=== PATIENT | male | born 1960 | race Two or more races ===

== ENCOUNTER 2024-08-02 05:09 | Day surgery (SDC) | payer OTHER ==
[~2024-08-02 05:09] MED LIST: CAPOTEN25 MG; COZAAR25 MG; GLIPIZIDE10 MG; GLUMETZA500 MG; PRILOSEC40 MG; SIMVASTATIN10 MG
[2024-08-02] MEDS ORDERED: HEMOSTATIC MATRIX 1 KIT KIT TOP ONE (06:44)
[2024-08-02] MEDS ORDERED: DIBUCAINE 30 GM TUBE ONE (06:44)
[2024-08-02] MEDS ORDERED: METRONIDAZOLE/SODIUM CHLORIDE 500 MG/100 ML PIGGYBACK IV ONE (06:45)
[2024-08-02] MEDS ORDERED: CEFTRIAXONE SODIUM 2,000 MG VIAL ONE (06:45)
[2024-08-02] MEDS ORDERED: BUPIVACAINE HCL/MPF 0.5% 30ML VIAL ONE (06:45)
[2024-08-02] MEDS ORDERED: LIDOCAINE HCL 1%/EPINEPHRINE 20ML VIAL IJ ONE (06:45)
[2024-08-02] MEDS ORDERED: POVIDONE-IODINE 118 ML BOTT TOP ONE (06:57)
[2024-08-02] MEDS ORDERED: OXYCODONE HCL5 MG PO ×2 (11:10)
[2024-08-02] MEDS ORDERED: TAMSULOSIN HCL 0.4 MG CAP PO ONE ×2 (11:15→11:37)
== END 2024-08-02 12:55 | disposition home or self-care (01) ==
LOC: CIR.AMB 05:09
PROVIDERS: ATTEND Surgery
DX: K64.4 Residual hemorrhoidal skin tags (principal); K64.8 Other hemorrhoids; K62.5 Hemorrhage of anus and rectum; K62.89 Other specified diseases of anus and rectum

== ENCOUNTER 2024-08-06 12:33 | Emergency (ER) | payer OTHER ==
[~2024-08-06] VITALS: Ht 165.1 cm; Wt 68.0 kg
[~2024-08-06 12:33] MED LIST changes: +OXYCODONE HCL5 MG PO
[2024-08-06 14:19] LABS: HEMATOCRIT 38.5 % (39.0-48.0); HEMOGLOBIN 13.2 g/dL (13-16.00); MEAN CORPUSCULAR HEMOGLOBIN 30.2 pg (27.00-32.0); MEAN CORPUSCULAR HGB CONC 34.3 g/dl (32.0-36.0); PLATELET COUNT 239 K/uL (150-450); RED BLOOD COUNT 4.37 M/uL (4.00-6.00); RED CELL DISTRIBUTION WIDTH 12.7 % (11.5-14.5)
[2024-08-06 14:27] LABS: URINE APPEARANCE Clear; URINE BILIRRUBIN Negative (NEGATIVE); URINE BLOOD Negative; URINE COLOR Yellow; URINE KETONE Negative (NEGATIVE); URINE LEUKOCYTE Negative; URINE NITRATE Negative; URINE PROTEIN Negative (NEGATIVE); URINE UROBILINOGEN 0.2 E.U./dl
[2024-08-06 14:31] LABS: URINE BACTERIA 7.3 uL (0.0-1933); URINE RBC 3.9 uL (0.0-20.8); URINE WBC 4.5 uL (0.0-23.2)
[2024-08-06 14:36] LABS: URINE EPITHELIAL CELLS 0.6 uL (0.0-38.8); URINE GLUCOSE 100 MG/DL (NEGATIVE)
[2024-08-06] MEDS ORDERED: BARIUM SULFATE 450 ML ORAL.SUSP PO ONE (15:32)
[2024-08-06 17:54] LABS: ALBUMIN 3.8 gm/dL (3.4-5.0); BILIRUBIN TOTAL 0.36 mg/dL (0.3-1.2); CALCIUM 10.2 mg/dL (8.5-10.1); CREATININE SERUM 1.05 mg/dL (0.70-1.30); GFR 70.89; GLOBULINA 4.4 G/DL (2.4-3.5); POTASSIUM 3.79 mEq/L (3.5-5.1); TOTAL PROTEIN 8.2 gm/dL (6.4-8.2)
[2024-08-06] MEDS ORDERED: TAMS0.4C PO (22:30)
[2024-08-06] MEDS ORDERED: CEPHALEXIN500 MG PO (22:30)
== END 2024-08-06 22:40 | disposition home or self-care (01) ==
LOC: ER 12:34
PROVIDERS: Emergency Medicine; General Practice
DX: R33.9 Retention of urine, unspecified (principal)